=== PATIENT | female | born 1945 | race Caucasian/White ===

== ENCOUNTER 2023-07-19 12:42 | Emergency (ER) | payer MEDICARE, SELFPAY ==
[2023-07-19] VITALS (8 sets, daily range): BP systolic 124–155; BP diastolic 69–91; PULSE 74–89; RESP 12–19; TEMP 36.6–36.8; O2SAT 93–99; BMI 28.0
--- NOTE | 2023-07-19 13:15 | CT_ITS ---
STUDY: CT BRAIN WITHOUT CONTRAST REASON FOR EXAM: Female, 78 years old. syncope, confusion RADIATION DOSAGE (If Supplied By Facility): CTDIvol = ( 44.99 ) mGy, DLP = ( 779.24 ) mGycm TECHNIQUE: Transaxial CT imaging of the brain was performed without administration of intravenous contrast material. Individualized dose optimization techniques were used for this CT. COMPARISON: No relevant priors. FINDINGS: Normal soft tissue structures. Normal calvarium. Normal size ventricles and extra-axial spaces for the patient''s age. There are areas of decreased attenuation within the white matter tracts of the supratentorial brain, consistent with microvascular disease changes. Normal basal ganglia and thalami. Normal brainstem. Normal cerebellum. There is no intracranial hemorrhage. There are no findings of an acute ischemic infarction. Normal visualized paranasal sinuses. CT/Brain/Head without Contrast IMPRESSION: Chronic involutional changes of the brain. No acute abnormalities. Electronically Signed: Ho Gonzalez MD at 20:00 EDT ,
--- NOTE | 2023-07-19 13:16 | EKG12_ITS ---
Test Reason : SYNCOPE Blood Pressure : / mmHG Vent. Rate : 077 BPM Atrial Rate : 077 BPM P-R Int : 188 ms QRS Dur : 070 ms QT Int : 370 ms P-R-T Axes : 058 012 045 degrees QTc Int : 418 ms Normal sinus rhythm Normal ECG Confirmed by RESHMA BECKFORD, FIDEL ([id number]), assistant editor LUCRETIA LOPEZ ([id number]) on 07/22/2023 6:17:33 AM Referred By: WILBER Confirmed By:FRANCIS JUSTICE MD
--- NOTE | 2023-07-19 13:18 | NURSING ---
NO OLD EKGS
[2023-07-19 13:30] LABS: Absolute Lymphocyte Count 1.17 X10^3/uL (0.83-4.51); Absolute Neutrophil Count 6.7 X10^3/uL (2.0-7.7); Basophil# 0.04 X10^3/uL; Basophil% 0.5 % (0-1); Eosinophil# 0.01 X10^3/uL; Eosinophils% 0.1 % (0-5); Hematocrit 39.9 % (37-47); Hemoglobin 13.4 g/dL (12.0-15.0); Lymphocyte # 1.17 X10^3/ul (0.83-4.51); Lymphocyte % 13.9 % (19-41); Mean Corp Hgb Conc 33.6 g/dL (32-36); Mean Corpuscular Volume 89.3 fL (81-99); Mean Platelet Vol. 13.5 fl (6.2-12.0); Monocyte# 0.47 X10^3/uL; Monocyte% 5.6 % (0-10); NRBC Flagged by Analyzer 0 % (0-5); Neutrophil # 6.67 X10^3/uL (2.7-7.7); Neutrophil % 79.5 % (47-70); Platelet Count 184 K/mm3 (150-450); RBC Distribution Width CV 11.8 % (11.6-14.6); RBC Distribution Width SD 38.3 fl (35.1-43.9); Red Blood Count 4.47 M/mm3 (4.2-5.4); White Blood Count 8.4 K/mm3 (4.4-11.0)
[2023-07-19 13:47] LABS: AST(SGOT) 19 U/L (15-37); Alanine Aminotransfer ALT/SGPT 26 U/L (13-56); Albumin, Serum 3.7 g/dL (3.2-5.0); Alkaline Phosphatase 63 U/L (45-117); Anion Gap 11 (5-15); BUN 8 mg/dL (7-18); Bilirubin, Direct 0.26 mg/dL (0.00-0.30); Calcium,Total 8.8 mg/dL (8.5-10.1); Chloride 107 mmol/L (98-107); Creatinine, Serum 0.89 mg/dL (0.55-1.02); EST Glomerular Filtration Rate 65 mL/min (>60); Est Glom Filt Rate - Afr Amer 79 mL/min (>60); Estimated Creatinine Clearance 49.12 ml/min; Globulin 2.9 g/dL (2.2-4.2); Glucose 122 mg/dL (74-106); Potassium 3.6 mmol/L (3.5-5.1); Protein, Total 6.6 g/dL (6.4-8.2); Sodium Level 139 mmol/L (136-145); Troponin-I HS (w/2H Reflex) 3 pg/mL (3.0-54.0)
[2023-07-19] MEDS: LORazepam 2 MG/ML Syringe 0.5 MG IV (13:54)
[2023-07-19] MEDS: 0.9% Normal Saline (1000mL) 1,000 ML 150 ML IV (13:55)
[2023-07-19 14:06] LABS: Bacteria 0 SEEN /hpf (None Seen); Mucous, Urine 0 SEEN /hpf (<or=2+); Red Blood Cells-Urine 0 SEEN /hpf (0-5); Squamous Epithelial Cells - UA 0 SEEN /hpf (5-10)
[2023-07-19 14:07] LABS: Color, Urine Yellow (Yellow); Glucose, Dipstick Normal (Normal); Ketone-Dipstick 50 mg/dl (Negative); Leukocyte Esterase-Dipstick 500 /ul (Negative); Nitrite-Dipstick Negative (Negative); Occult Blood-Urine 10 /ul (Negative); Protein-Dipstick Negative (Negative); Urine Bilirubin Dipstick Negative (Negative); Urine Clarity Clear (Clear); Urine Urobilinogen Normal (Normal)
[2023-07-19 14:13] LABS: White Blood Cells 0-5 SEEN /hpf (0-5)
[2023-07-19 15:25] LABS: Reflex Troponin-HS? (from REC) Y
--- NOTE | 2023-07-19 15:51 | EDS_ITS ---
HPI History of Present Illness Chief Complaint: Syncope Informant: spouse/S.O. Onset/Context/Timing Onset: Today Narrative Narrative: Patient presents via EMS secondary to syncopal episode. at bedside provides much of the history. He states both he and his have been under significant stress recently. He came in the house today and heart the patient fall in the bedroom. He found her lying on her back, unconscious but breathing. EMS noted patient was confused on their arrival. She reportedly had another brief episode of unresponsiveness with EMS where she responded to a sternal rub. EMS felt her symptoms would worsen when she was talking about stressful topics. During my interview and exam, patient states she does not remember anything about this morning or her syncopal episode. She is very tearful and anxious. She is speaking with a strong voice and tolerating secretions well, but states she feels like she can't swallow which is making it difficult for her to breathe. Patient's most recent visit to her physician at [facility] was reviewed. She has a past medical history of osteopenia, anxiety and depression, cognitive decline, hyperlipidemia, dementia without behavioral disturbance, IBS. Current medications as of April 2023 include: Atorvastatin Namenda Lexapro Bentyl Vitamin C Biotin Fish oil Vitamin B-12 I [facility] Medical History no medical history Home Medications ?Medication ?Instructions ?Recorded ?Last Taken ?Type lorazepam 0.5 mg tablet (Ativan) 0.5 mg PO TID PRN anxiety #20 tabs 07/19/23 Unknown Rx Allergy/AdvReac Type Severity Reaction Status Date / Time codeine Allergy Unknown PT UNSURE Verified 07/19/23 13:11 OF REACTION Social History Smoking Status: Never smoker ROS ROS ED Constitutional Constitutional ED: Denies chills or fever(s) Eyes Eyes: Denies blurry vision ENT ENT ED: Reports other Details: difficulty swallowing ; Denies rhinorrhea Cardiovascular Cardiovascular: Denies chest pain or palpitations Respiratory/Chest Respiratory/Chest: Denies cough or dyspnea Gastrointestinal Gastrointestinal: Denies abdominal pain, diarrhea or vomiting Musculoskeletal Musculoskeletal: Denies arthralgias Neurologic Neurologic: Denies headache(s) Psychiatric Psychiatric: Denies anxiety or depression EXAM Physical Exam Const Vital Signs: 07/19/23 12:50 07/19/23 12:50 07/19/23 14:30 Temperature 98.2 F Temperature Source Oral Pulse Rate 79 81 Respiratory Rate 16 12 Respiratory Effort Normal Respiratory Pattern Normal Blood Pressure 155/91 H 136/69 H Blood Pressure Mean 112 90 Pulse Ox 99 93 Oxygen Delivery Method Room Air 07/19/23 14:45 07/19/23 15:26 07/19/23 15:30 Temperature Temperature Source Pulse Rate 85 Respiratory Rate 18 Respiratory Effort Respiratory Pattern Blood Pressure 137/78 H Blood Pressure Mean 97 Pulse Ox 94 96 Oxygen Delivery Method 07/19/23 15:45 07/19/23 16:00 07/19/23 17:46 Temperature 97.8 F Temperature Source Pulse Rate 74 77 89 Respiratory Rate 16 19 H 16 Respiratory Effort Respiratory Pattern Blood Pressure 125/74 H 124/84 H Blood Pressure Mean 91 97 Pulse Ox 96 96 94 Oxygen Delivery Method Room Air Positive well nourished and well developed General Appearance ED: well developed HEENT Reports moist mucous membranes Eyes EOMs intact bilaterally Chest Wall inspection of chest normal and palpation of chest normal Resp normal respiratory effort and clear to auscultation bilaterally Cardio regular rate and regular rhythm GI non-tender Palpation: soft Extremity normal to inspection Neuro oriented x3 Neuro Narrative: No focal neuro deficits Psych mental status grossly normal Skin no rashes or lesions noted MDM MDM MDM Narrative Medical decision making narrative: Patient placed on campus monitor. EKG obtained to evaluate for arrhythmia. Labwork obtained to evaluate for leukocytosis, anemia, electrolyte derangement. Urinalysis obtained to evaluate for evidence of infection. CT head obtained given syncope, fall, and reported difficulty swallowing. Patient would get increasingly upset and tearful feeling that she could not swallow which would cause difficulty breathing. When she was instructed in her breathing she would relax and breathe without difficulty. She ultimately required a 0.5mg dose of Ativan to help with anxiety. History & Record Review Discussion w/independent historian: Patient and Significant other Lab Data Attestation: I reviewed the patient's lab results. Labs: Laboratory Results - last 24 hr 07/19/23 07/19/23 07/19/23 13:20 13:56 15:40 WBC 8.4 RBC 4.47 Hgb 13.4 Hct 39.9 MCV 89.3 MCH 30.0 MCHC 33.6 RDW Std Deviation 38.3 RDW Coeff of Juve 11.8 Plt Count 184 MPV 13.5 H Immature Gran % (Auto) 0.400 Neut % (Auto) 79.5 H Lymph % (Auto) 13.9 L [place] % (Auto) 5.6 Eos % (Auto) 0.1 Baso % (Auto) 0.5 Absolute Neuts (auto) 6.7 Absolute Lymphs (auto) 1.17 Nucleated RBC % 0 Sodium 139 Potassium 3.6 Chloride 107 Carbon Dioxide 21.0 Anion Gap 11 BUN 8 Creatinine 0.89 Estim Creat Clear Calc 49.12 Est GFR (MDRD) Af Amer 79 Est GFR (MDRD) Non-Af 65 BUN/Creatinine Ratio 9.0 L Glucose 122 H Calcium 8.8 Total Bilirubin 0.80 Direct Bilirubin 0.26 AST 19 ALT 26 Alkaline Phosphatase 63 Troponin I High Sens 3 3 Total Protein 6.6 Albumin 3.7 Globulin 2.9 Urine Color Yellow Urine Clarity Clear Urine pH 8.0 Ur Specific [place] 1.010 Urine Protein Negative Urine Glucose (UA) Normal Urine Ketones 50 H Urine Occult Blood 10 H Urine Nitrite Negative Urine Bilirubin Negative Urine Urobilinogen Normal Ur Leukocyte Esterase 500 H Urine RBC 0 SEEN Urine WBC 0-5 SEEN Ur Squamous Epith Cells 0 SEEN Urine Bacteria 0 SEEN Urine Mucus 0 SEEN Radiography Diagnostic Testing: Clinical Impression(s) from Imaging Studies Brain CT 07/19/23 13:15 IMPRESSION: Chronic involutional changes of the brain. No acute abnormalities. Electronically Signed: Ho Gonzalez MD at 20:00 EDT , EKG Initial EKG: Attestation: I personally reviewed and interpreted this EKG as follows: Interpretation: Sinus Rhythm (Sinus rhythm at 77 bpm without evidence of ischemia.) Treatment and Re-Evaluation :: CBC reveals normal white count at 8.4 with a hemoglobin of 13.4. Chemistry studies are unremarkable with normal renal function. Glucose is 122. Urinalysis reveals 50 ketones without evidence of infection. EKG is sinus rhythm with no evidence of ischemia or arrhythmia. No arrhythmias have been noted during our observation in the ED. Initial troponin is normal at 3 with a repeat troponin of 3. Patient and updated on test results. We are still awaiting CT head results and they are significantly delayed due to computer/internet issues. Patient and would like to go home understanding that I do not yet have the reading for the CT scan. If there are any abnormalities, they will be called. I will write her a short course of Ativan to help with anxiety and provide referrals for counseling. Discharge Plan Triage Chief Complaint: Syncope ED Provider: Grace Chou Dx/Rx/DC Orders Clinical Impression: Syncope, Anxiety Instructions: ED Anxiety Reaction, ED Fainting, Uncertain Cause Prescriptions: New lorazepam [Ativan] 0.5 mg tablet 0.5 mg PO TID PRN (Reason: anxiety) Qty: 20 0RF Primary Care Provider: Massimo Martinez Referrals: Counseling,Center [Group of Physicians] - As soon as possible Massimo Martinez MD [Primary Care Provider] - As soon as possible Print Language: Setswana Disposition Disposition: Home, Self Care Discharge Date/Time: 07/19/23 17:48
[2023-07-19 16:15] LABS: Troponin-I HS 3 pg/mL (3.0-54.0)
== END 2023-07-19 17:48 | disposition home or self-care (01) ==
PROVIDERS: Emergency Provider Emergency Medicine; PCP Internal Medicine; Visit Provider Emergency Medicine
DX: R55 Syncope and collapse (principal); F03.90 Unspecified dementia, unspecified severity, without behavioral disturbance, psychotic disturbance, mood disturbance, and anxiety; F41.9 Anxiety disorder, unspecified; E78.5 Hyperlipidemia, unspecified; R41.0 Disorientation, unspecified
CPT/HCPCS: 70450; 80048; 80076; 81001; 84484; 85025; 93005; 96361; 96374; 99284; J7030; A4216

== ENCOUNTER 2023-08-29 13:19 | Emergency (ER) | payer MEDICARE, SELFPAY ==
[2023-08-29 13:19] VITALS: BP 162/90; PULSE 86; RESP 18; TEMP 36.2; O2SAT 100
--- NOTE | 2023-08-29 13:26 | EX.ED.UPPERE ---
HPI History of Present Illness Chief Complaint: Laceration Detail of Chief Complaint: Laceration dorsal surface of the right hand Informant: patient and spouse/S.O. Occured/Mechanism Mechanism/Context: Yes injury Comment: Scraped her hand up against a hanging planter Onset/Context/Timing Onset: Hours Context: Sudden Onset Timing: Continuous Quality of Pain: Dull Location: Dorsum of left hand webspace index long finger Current Severity: Mild Maximum Severity: Severe Worsened by: Removing the gauze from her wound to evaluate Relieved by: Nothing Associated Symptoms Associated Symptoms: Negative for Parasthesia, Weakness or Loss of Funtion Narrative Narrative: . Patient is a 78-year-old evloc-bhmn-dtfgobeg woman. She does not recall when her last tetanus shot was. She denies paresthesia, anesthesia medics. She complains of pain with movement. There is no direct blow. She bumped her hand against the plantar and sustained a laceration to the dorsum of her hand. Tetanus Immunization: Unknown Prior similar symptoms: No Recent Illness/Hospitalization: No PFSH PFSH Medical History no medical history Home Medications ?Medication ?Instructions ?Recorded ?Last Taken ?Type lorazepam 0.5 mg tablet (Ativan) 0.5 mg PO TID PRN anxiety #20 tabs 07/19/23 Unknown Rx Allergy/AdvReac Type Severity Reaction Status Date / Time codeine Allergy Unknown PT UNSURE Verified 08/29/23 13:21 OF REACTION Social History (Updated 08/29/23 @ 13:[address] Swapnil Monsalve MD) household members: spouse Smoking Status: Never smoker ROS ROS ED Musculoskeletal Musculoskeletal: Reports other Details: Per HPI narrative ; Denies back pain, myalgias or neck pain Integumentary Reports other Details: Laceration dorsal surface of the right hand Neurologic Neurologic: Denies paresthesias or weakness Hematologic/Lymphatic Hematologic/Lymphatic: Denies easy bleeding, easy bruising or lymphadenopathy EXAM Physical Exam Const Vital Signs: 08/29/23 13:19 Temperature 97.2 F L Temperature Source Temporal Pulse Rate 86 Respiratory Rate 18 Blood Pressure 162/90 H Blood Pressure Mean 114 Pulse Ox 100 Oxygen Delivery Method Room Air Positive well nourished and well developed General Appearance ED: well developed and NAD; Negative for cyanotic or diaphoretic HEENT normocephalic and atraumatic Eyes PERRL and EOMs intact bilaterally Resp normal respiratory effort Cardio regular rate and regular rhythm Extremity full ROM; Negative for normal to inspection Extremity Narrative: . Median, radial and ulnar function intact. There is a laceration soft flap-like near the webspace of the the index and long finger. There is a jagged laceration dorsal surface of the hand. The extensor commonness tendon to the long finger is seen and the extensor inside tendon is seen. There is no injury to the tendon specifically. Capillary refill is normal. Sensation is normal. Neuro oriented x3, CN's II-XII intact bilaterally, no focal motor deficits and no sensory deficits noted Psych Mood & Affect: anxious MDM MDM MDM Narrative Medical decision making narrative: Laceration previously described and repair laceration. Please read procedure note. Imaging is not indicated. Procedures Other Procedures Procedure(s): Laceration repair Patient was prepped draped sterile manner. There was no signs for local nutrition with wounds on lidocaine. Total of 3 cc was infiltrated. Patient's wound was irrigated with 250 cc of normal saline. Using 5-0 Ethilon simple interrupted sutures placed to approximate the wound. There is loss of tissue. Patient was made aware of this. There was enough redundant loose tissue to close the wound completely. Total length 5.2 cm. It is somewhat irregular and there was a small flap. A total of 12 stitches placed. Discharge Plan Triage Chief Complaint: Laceration ED Provider: Swapnil Monsalve Dx/Rx/DC Orders Clinical Impression: Laceration of right hand, Avulsion of skin of hand Instructions: ED Laceration, Hand: All Closures Prescriptions: No Action lorazepam [Ativan] 0.5 mg tablet 0.5 mg PO TID PRN (Reason: anxiety) Qty: 20 0RF Primary Care Provider: Massimo Martinez Referrals: Massimo Martinez MD [Primary Care Provider] - 10-14 Days suture removal Activity Restrictions/Additional Instructions: 1. Keep wound clean and dry for the next 48 hours 2. Apply bacitracin ointment 3 times a day 3. If there is any concern for infection follow-up with Dr. Martinez sooner or return to the emergency department Print Language: [place] Citizen Disposition Disposition: Home, Self Care
[2023-08-29] MEDS: Diphth,Pertuss(Acell),Tet Vac 0.5 ML Vial IM (13:33)
[2023-08-29] MEDS: Lidocaine 1% (20 ml mdv) 20 ML Vial INFILT (13:33)
== END 2023-08-29 14:12 | disposition home or self-care (01) ==
PROVIDERS: Emergency Provider Emergency Medicine; PCP Internal Medicine; Visit Provider Emergency Medicine
DX: S61.411A Laceration without foreign body of right hand, initial encounter (principal); W26.8XXA Contact with other sharp object(s), not elsewhere classified, initial encounter; Z23 Encounter for immunization
CPT/HCPCS: 12002; 90471; 90715; 99284